=== PATIENT | female | born 1955 | race Caucasian/White ===

== ENCOUNTER 2018-09-15 16:58 | Emergency (ER) | END 2018-09-15 20:47 | disposition home or self-care (01) ==

== ENCOUNTER 2019-04-22 09:13 | Emergency (ER) | payer OTHER ==
[~2019-04-22] VITALS: Wt 76.3 kg
[~2019-04-22 09:13] MED LIST: AMLO5TAB4 PO; CIPR500T4 PO; IBUP-1542 PO
[2019-04-22] MEDS ORDERED: PRED20TA PO (09:54)
[2019-04-22] MEDS ORDERED: HYDR-4011 PO (09:54)
--- NOTE | 2019-04-22 10:07 | ERD ---
ER Documentation Chief Complaint Chief Complaint R. breast pain x 2 weeks HPI 63-year-old female presenting with right breast pain x2 weeks. Patient states that she has had a rashes which is taking a Cyclovir. Patient states that her pain is continued. She denies any chest pain or shortness of breath. Her pain radiates from her back around to her right breast. Denies other medical problems. NKDA. Surgical history denies. Social history denies ROS All systems reviewed and are negative except as per history of present illness. Medications Home Meds Active Scripts Prednisone* (Prednisone*) 20 Mg Tab, 40 MG PO DAILY for 4 Days, TAB Prov:JUAN MANUEL PARADA PA-C 04/22/19 Hydrocodone/Acetaminophen ([place] 5-325 Tablet) 1 Each Tablet, 1 TAB PO Q6H PRN for PAIN, #7 TAB Prov:JUAN MANUEL PARADA PA-C 04/22/19 Amlodipine Besylate* (Norvasc*) 5 Mg Tablet, 5 MG PO DAILY, #14 TAB Prov:MARY NAVA MD 09/15/18 Ibuprofen* (Motrin*) 600 Mg Tab, 600 MG PO Q6H PRN for PAIN AND OR ELEVATED TEMP, #20 TAB Prov:MARY NAVA MD 09/15/18 Ciprofloxacin Hcl* (Ciprofloxacin Hcl*) 500 Mg Tablet, 500 MG PO BID for 7 Days, TAB Prov:MARY NAVA MD 09/15/18 Allergies Allergies: Coded Allergies: No Known Allergy (Unverified , 09/15/18) PMhx/Soc History of Surgery: Yes ( x2) Anesthesia Reaction: No Hx Neurological Disorder: No Hx Respiratory Disorders: No Hx Cardiac Disorders: Yes (HTN) Hx Psychiatric Problems: No Hx Miscellaneous Medical Probl: No Hx Alcohol Use: No Hx Substance Use: No Hx Tobacco Use: No FmHx Family History: No diabetes, No coronary disease, No other Physical Exam Vitals Vital Signs Date Temp Pulse Resp B/P (MAP) Pulse Ox O2 O2 Flow FiO2 Time Delivery Rate 04/22/19 98.2 75 17 167/82 96 09:24 (110) Physical Exam GENERAL: The patient is well-appearing, well-nourished, in no acute distress CHEST: Clear to auscultation bilaterally. There are no rales, wheezes or rhonchi. HEART: Regular rate and rhythm. No murmurs, clicks, rubs or gallops. SKIN: Vesicular rash noted to the T3 dermatome. Crusting noted. Procedures/MDM MDM: 63-year-old female presenting with findings consistent with shingles. I have low suspicion for life-threatening rash. Patient will be discharged with additional medications to help symptoms. There is no indication for blood work or imaging. Patient is discharged with strict ER precautions and told to follow-up with primary care within 1 to 2 days for close evaluation. Patient is told symptoms change or worsen to return immediately to the ER. All questions answered at discharge Departure Diagnosis: Primary Impression: Shingles Condition: Stable Patient Instructions: Shingles (Herpes Zoster) Referrals: [facility] YOU HAVE RECEIVED A MEDICAL SCREENING EXAM AND THE RESULTS INDICATE THAT YOU DO NOT HAVE A CONDITION THAT REQUIRES URGENT TREATMENT IN THE EMERGENCY DEPARTMENT. FURTHER EVALUATION AND TREATMENT OF YOUR CONDITION CAN WAIT UNTIL YOU ARE SEEN IN YOUR DOCTORS OFFICE WITHIN THE NEXT 1-2 DAYS. IT IS YOUR RESPONSIBILITY TO MAKE AN APPOINTMENT FOR FOLOW-UP CARE. IF YOU HAVE A PRIMARY DOCTOR --you should call your primary doctor and schedule an appointment IF YOU DO NOT HAVE A PRIMARY DOCTOR YOU CAN CALL OUR PHYSICIAN REFERRAL HOTLINE AT IF YOU CAN NOT AFFORD TO SEE A PHYSICIAN YOU CAN CHOSE FROM THE FOLLOWING [facility] [address] [facility] [facility] [address] [facility] [facility] [address] [facility] [facility] [address] [facility]. [facility] [address] [facility]. [facility]. [address] Additional Instructions: FOLLOW UP WITH YOUR PRIMARY CARE PHYSICIAN TOMORROW.Return to this facility if you are not improving as expected. JUAN MANUEL PARADA PA-C April 22, 2019 10:06
== END 2019-04-22 10:30 | disposition home or self-care (01) ==
LOC: FTE 09:13
DX: B02.9 Zoster without complications (principal); I10 Essential (primary) hypertension
CPT/HCPCS: 99283

== ENCOUNTER 2019-06-15 09:07 | Emergency (ER) | payer OTHER ==
[~2019-06-15] VITALS: Ht 152.4 cm; Wt 76.4 kg
[~2019-06-15 09:07] MED LIST changes: +HYDR-4011 PO; +PRED20TA PO
[2019-06-15 09:12] VITALS: Ht 152.4 cm; Wt 76.4 kg
[2019-06-15] MEDS ORDERED: PANT40TA4 PO (10:21)
[2019-06-15] MEDS ORDERED: FUROSEMIDE 20 MG TAB PO ONE (11:30)
[2019-06-15] MEDS ORDERED: FURO-110 PO (12:11)
--- NOTE | 2019-06-15 12:29 | ERD ---
ER Documentation Chief Complaint Chief Complaint SWELLING ON BILAT LOWER EXT, NO SOB, NO CP HPI This is a 63-year-old female presents to the emergency department complaining of swelling of her lower extremities for the past 48 hours. The patient indicates she is also experiencing intermittent cramping of her lower extremities. She denies any recent travel or prolonged immobilization. She has no shortness of breath at rest or exertion. She denies a productive or nonproductive cough. She is no chest pain or pressure. She denies any prolonged walking or changes in diet with increased salt intake. She denies any swelling of her upper extremities. No rashes. ROS All systems reviewed and are negative except as per history of present illness. Medications Home Meds Active Scripts Furosemide* (Lasix*) 20 Mg Tablet, 20 MG PO DAILY, #20 TAB Prov:WILLEM ONEAL MD 06/15/19 Amlodipine Besylate* (Norvasc*) 5 Mg Tablet, 5 MG PO DAILY, #14 TAB Prov:MARY NAVA MD 09/15/18 Reported Medications Pantoprazole* (Pantoprazole*) 40 Mg Tablet.dr, 40 MG PO DAILY, TAB 06/15/19 Discontinued Scripts Prednisone* (Prednisone*) 20 Mg Tab, 40 MG PO DAILY for 4 Days, TAB Prov:JUAN MANUEL PARADA PA-C 04/22/19 Hydrocodone/Acetaminophen ([place] 5-325 Tablet) 1 Each Tablet, 1 TAB PO Q6H PRN for PAIN, #7 TAB Prov:JUAN MANUEL PRAADA PA-C 04/22/19 Ibuprofen* (Motrin*) 600 Mg Tab, 600 MG PO Q6H PRN for PAIN AND OR ELEVATED TEMP, #20 TAB Prov:MARY NAVA MD 09/15/18 Ciprofloxacin Hcl* (Ciprofloxacin Hcl*) 500 Mg Tablet, 500 MG PO BID for 7 Days, TAB Prov:MARY NAVA MD 09/15/18 Allergies Allergies: Coded Allergies: No Known Allergy (Unverified , 06/15/19) PMhx/Soc History of Surgery: Yes ( x2) Anesthesia Reaction: No Hx Neurological Disorder: No Hx Respiratory Disorders: No Hx Cardiac Disorders: Yes (HTN) Hx Psychiatric Problems: No Hx Miscellaneous Medical Probl: No Hx Alcohol Use: No Hx Substance Use: No Hx Tobacco Use: No Smoking Status: Never smoker Physical Exam Vitals Vital Signs Date Temp Pulse Resp B/P (MAP) Pulse Ox O2 O2 Flow FiO2 Time Delivery Rate 06/15/19 68 18 136/68 96 Room Air 11:00 (90) 06/15/19 98.4 74 18 139/67 96 09:12 (91) Physical Exam Constitutional:Well-developed. Well-nourished. HEENT:Normocephalic. Atraumatic.Pupils were equal round reactive to light. Moist mucous membranes.No tonsillar exudates. Respiratory: Not using accessory muscles of respiration.Lungs were clear to auscultation bilaterally. No rhonchi. No rales. No wheezing. Cardiovascular: Regular rate regular rhythm.No murmurs. No rubs were appreciated.S1, S2 normal. Distal pulses are palpable 2+ bilaterally Muscle skeletal: Full range of motion of both the upper and lower extremities bilaterally.Normal muscle tone. tenderness bilaterally of the calves with negative Homans sign and no asymmetrical tenderness Skin: No petechia, no purpura. No lesions on the palms or the soles of the feet. No maculopapular rash. 1+ pitting edema of the lower extremities. NEURO: Patient was alert, awake, orientated x3.No facial droop. Gait observed and normal with no ataxia.Speech had regular rate and rhythm. No focal neurological deficits. Result Diagram: 06/15/1993806/15/19938 Results 24 hrs Laboratory Tests Test 06/15/19 09:39 White Blood Count 7.7 10^3/ul Red Blood Count 4.49 10^6/ul Hemoglobin 14.1 g/dl Hematocrit 42.3 % Mean Corpuscular Volume 94.2 fl Mean Corpuscular Hemoglobin 31.4 pg Mean Corpuscular Hemoglobin Concent 33.3 g/dl Red Cell Distribution Width 13.2 % Platelet Count 328 10^3/UL Mean Platelet Volume 11.6 fl Immature Granulocytes % 0.400 % Neutrophils % 64.4 % Lymphocytes % 24.2 % Monocytes % 7.0 % Eosinophils % 2.7 % Basophils % 1.3 % Nucleated Red Blood Cells % 0.0 /100WBC Immature Granulocytes # 0.030 10^3/ul Neutrophils # 5.0 10^3/ul Lymphocytes # 1.9 10^3/ul Monocytes # 0.5 10^3/ul Eosinophils # 0.2 10^3/ul Basophils # 0.1 10^3/ul Nucleated Red Blood Cells # 0.0 10^3/ul Prothrombin Time 13.2 Sec Prothrombin Time Ratio 1.0 INR International Normalized Ratio 0.99 Activated Partial Thromboplast Time 32.7 Sec Sodium Level 141 mmol/L Potassium Level 3.7 mmol/L Chloride Level 111 mmol/L Carbon Dioxide Level 22 mmol/L Anion Gap 8 Blood Urea Nitrogen 15 mg/dl Creatinine 0.56 mg/dl Est Glomerular Filtrat Rate mL/min > 60 mL/min Glucose Level 98 mg/dl Calcium Level 9.4 mg/dl Total Bilirubin 0.8 mg/dl Direct Bilirubin 0.00 mg/dl Indirect Bilirubin 0.8 mg/dl Aspartate Amino Transf (AST/SGOT) 24 IU/L Alanine Aminotransferase (ALT/SGPT) 14 IU/L Alkaline Phosphatase 105 IU/L Creatine Kinase 35 IU/L Creatine Kinase Index 0.9 Creatinine Kinase MB (Mass) 0.30 ng/ml Troponin I < 0.012 ng/ml B-Type Natriuretic Peptide 60 PG/ML Total Protein 7.4 g/dl Albumin 4.1 g/dl Globulin 3.30 g/dl Albumin/Globulin Ratio 1.24 Current Medications Medications Dose Sig/Salome Start Time Status Last (Trade) Ordered Route PRN Stop Time Admin Dose Reason Admin Furosemide 40 mg ONCE ONCE 06/15/19 DC 06/15/19 (Lasix) PO 11:30 11:30 06/15/19 11:31 Procedures/MDM This is a 63-year-old female with no known past medical history that presents to the emergency department with bilateral edema. I obtained venous duplex ultrasounds of the bilateral lower extremities and there is no evidence of a DVT. The patient had no physical exam findings are diagnostic imaging to suggest fluid overload from pulmonary edema or congestive heart failure or thyroid disorder. The patient did not appear to have an infectious process. I did indicate this to be diet related and positional and the patient felt comfortable being discharged home. I obtained an EKG to rule out for atypical myocardial infarction. 12 Lead EKG tracing ordered and reviewed by myself showed: Normal sinus rhythm of 67 bpm and no arrhythmia. NM interval normal. QRS duration normal. No ST segment elevation No ST segment depression. No changes consistent with acute ischemia. The patient was discharged home in fair condition. They were instructed to return to the emergency department at any time if there was any worsening of their condition. The patient stated they would follow up with their PCP in the next 24-48 hours to initiate a suitable medication regimen under the care of their PCP as well as to allow their PCP to monitor any drug reactions. The patient was discharged home with prescriptions after they gave informed consent to the new medication. They were also fully informed by myself on the adverse effects and adverse drug interactions in order to provide adequate safeguards to prevent possible adverse reactions to medications. Departure Diagnosis: Primary Impression: Mild peripheral edema Condition: Fair Patient Instructions: Peripheral Edema, Bilateral WILLEM ONEAL MD Jun 15, 2019 12:29
[2019-06-15 12:35] VITALS: BP 131/67; PULSE 67; RESP 18
== END 2019-06-15 12:39 | disposition home or self-care (01) ==
LOC: E/R 09:07
DX: R60.0 Localized edema (principal); I10 Essential (primary) hypertension
CPT/HCPCS: 71045; 80053; 82550; 82553; 83880; 84484; 85025; 85610; 85730; 93005; 93970; Z7502; Z7610

== ENCOUNTER 2019-08-13 20:32 | Observation (INO) | payer OTHER ==
[~2019-08-13] VITALS: Ht 172.7 cm; Wt 77.0 kg
[~2019-08-13 20:32] MED LIST changes: +AMLO-147 PO; +CEPH-443 PO; -CIPR500T4 PO; +FURO-110 PO; -HYDR-4011 PO; +HYDR12.58 PO; -IBUP-1542 PO; +PANT40TA4 PO; -PRED20TA PO
[2019-08-13] MEDS ORDERED: SODIUM CHLORIDE 0.9% 1L BAG IV* STA (21:06)
[2019-08-13] MEDS ORDERED: CEFEPIME 2GM/50 ML (PMX) 50 ML IVPB STA (21:06)
[2019-08-13] MEDS ORDERED: METOCLOPRAMIDE 10 MG INJ IV ONE (21:30)
[2019-08-13] MEDS ORDERED: ACETAMINOPHEN 325 MG TAB PO PRN ×2 (22:30→23:00)
[2019-08-13] MEDS ORDERED: ONDANSETRON 4 MG INJ IV PRN ×2 (22:30→23:00)
[2019-08-13] MEDS: DEXTROSE 5%-0.45% NACL 1,000 ML IV SCH (23:00)
[2019-08-14 01:29] VITALS: Ht 172.7 cm; Wt 77.0 kg
[2019-08-14] MEDS ORDERED: PANTOPRAZOLE (EC) 40 MG TAB PO SCH (06:00)
[2019-08-14 07:32] VITALS: BP 124/71; PULSE 73; RESP 20
[2019-08-14] MEDS: DEXTROSE 5%-0.45% NACL 1,000 ML IV SCH (08:41)
[2019-08-14] MEDS ORDERED: CEFTRIAXONE 1 GM/50 ML (PMX) 50 ML IVPB SCH (09:00)
[2019-08-14] MEDS ORDERED: AMLODIPINE 10 MG TAB PO SCH (09:00)
[2019-08-14 11:21] VITALS: BP 119/63; PULSE 67; RESP 20
== END 2019-08-14 12:52 | disposition home or self-care (01) ==
LOC: E/R 20:32 → TEL 22:40
PROVIDERS: ADMIT Internal Medicine; ATTEND Internal Medicine
DX: N39.0 Urinary tract infection, site not specified (principal); I10 Essential (primary) hypertension; E66.9 Obesity, unspecified; Z68.25 Body mass index [BMI] 25.0-25.9, adult
CPT/HCPCS: 36415; 70450; 71045; 74176; 80053; 80307; 81001; 82140; 82962; 83605; 84443; 84484; 85025; 87086; 93005; 96374; 96375; J0692; J0696; J2765; J7030; J7042; Z7500; Z7502; Z7610; 96361; G0378

== ENCOUNTER 2019-10-09 13:28 | Emergency (ER) | payer OTHER ==
[~2019-10-09] VITALS: Ht 157.5 cm; Wt 72.7 kg
[~2019-10-09 13:28] MED LIST changes: -AMLO5TAB4 PO; -HYDR12.58 PO
[2019-10-09 13:33] VITALS: Ht 157.5 cm; Wt 72.7 kg
[2019-10-09 16:45] VITALS: BP 140/75; PULSE 87; RESP 14
== END 2019-10-09 16:46 | disposition home or self-care (01) ==
LOC: E/R 13:28
DX: R07.89 Other chest pain (principal); I10 Essential (primary) hypertension
CPT/HCPCS: 36415; 71045; 80048; 82962; 83880; 84484; 85025; Z7502; 93005